=== PATIENT | female | born 1955 | race Caucasian/White ===

== ENCOUNTER 2018-08-23 21:52 | Inpatient (IN) ==
[2018-08-23] MEDS ORDERED: NS 1,000 ML IV SCH (23:00)
[2018-08-23] MEDS ORDERED: PROTONIX IV ONE (23:21)
[2018-08-23] MEDS ORDERED: SODIUM CHLORIDE 0.9% INJ ONE (23:21)
[2018-08-24 00:13] LABS: BASO# 0.02 X1000 (0.0-0.2); BASO% 0.2 % (0.0-0.8); EOS# 0.02 X1000 (0.0-0.7); EOS% 0.2 % (0.0-10.0); HEMATOCRIT 39.5 % (37.0-47.0); HEMOGLOBIN 13.5 g/dL (12.0-16.0); LYMPH# 1.04 X1000 (1.2-3.4); LYMPH% 10.6 % (20.5-51.1); MCH 30.7 PG (27-31); MCHC 34.2 g/dL (33-37); MCV 89.8 FL (81-99); MONO# 0.41 X1000 (0.11-0.59); MONO% 4.2 % (1.7-9.3); MPV 9.4 FL (7.4-10.4); NEUT# 8.33 X1000 (1.4-6.5); NEUT% 84.8 % (42.2-75.2); PLT 280 X1000 (130-400); RDW 13.9 % (11.5-14.5); WBC 9.82 X1000 (4.8-10.8)
[2018-08-24 00:22] LABS: INR 0.94; PROTIME 13.4 Seconds (11.0-16.0)
[2018-08-24 00:23] LABS: PTT 31.1 Seconds (22.3-41.8)
[2018-08-24 00:30] LABS: AGAP 14; ALB/GLOB RATIO 1.3; ALBUMIN 4.2 g/dL (3.5-5.0); ALKALINE PHOSPHATASE 91 U/L (32-104); BUN 10 mg/dL (8-22); CALCIUM 9.1 mg/dL (8.8-10.2); CHLORIDE 98 mmol/L (98-107); COSMO 274; CREATININE 0.7 mg/dL (0.5-0.9); ESTIMATED GFR > 60; GLUCOSE 118 mg/dL (70-104); GOT 16 U/L (10-30); GPT 13 U/L (10-36); POTASSIUM 4.1 mmol/L (3.5-5.1); SODIUM 137 mmol/L (136-145); TCO2 25 mmol/L (25-35); TOTAL BILIRUBIN 0.32 mg/dL (0.20-1.00); TOTAL PROTEIN 7.4 g/dL (6.3-8.3)
--- NOTE | 2018-08-24 02:27 | PROVIDER DOCUMENTATION ---
This chart was entered by Lucy Burrows Scribe, acting as scribe for Lucy Arboleda MD. HPI-Abdominal Pain/GI Problem - General Source: patient - History of Present Illness-ABD Nature of Presenting Problems: Pt presents to ED w/ ABD pain and diarrhea w/ bright red blood that started just today. She went to [facility] and was told that she may have diverticulits. They gave her antibiotics and told her to see ED if she got worse. She sts that she has been in more pain and had more bleeding. She sts that she has also had h/a dizziness w/ vomiting ( denies any blood in vomit ). Pt has hx of HTN. Sts that she has had recent weight gain. Abdominal Pain Onset Location: reports: periumbilical Pain Radiation: reports: no radiation Quality of Pain: reports: aching Severity in ED: reports: moderate Onset/Duration: reports: this morning Timing: reports: still present Activities at Onset: reports: none Exposure to sick contacts?: No Modifying Factors: improves with: nothing Associated Symptoms: reports: denies symptoms, diarrhea, vomiting. denies: diaphoresis, fever/chills, weakness Dark Stools Present?: reports: bright red blood Rectal Bleeding: reports: bloody diarrhea Rectal Pain: reports: none Emesis Description: reports: none Bruising or Bleeding Gums?: No Similar Symptoms Previously?: No Recently seen or treated by another doctor?: No <Lucy Arboleda - Last Filed: 08/24/18 02:26> <Zion Pinto - Last Filed: 08/24/18 03:20> - General Chief Complaint: GI Bleed Stated Complaint: BLOODY STOOLS Time Seen by Provider: 08/23/18 22:08 Review of Systems - Adult - REVIEW OF SYSTEMS - ADULT Constitutional: reports: no symptoms reported. denies: chills, fever Eyes: reports: no symptoms reported Ears, Nose, Mouth & Throat: reports: no symptoms reported Cardiovascular: reports: no symptoms reported. denies: chest pain Respiratory: reports: no symptoms reported Gastrointestinal: reports: abdominal pain, diarrhea, nausea, vomiting Genitourinary: reports: no symptoms reported Musculoskeletal: reports: no symptoms reported Integumentary: reports: no symptoms reported Neurological: reports: no symptoms reported. denies: dizziness/vertigo, headache/migraines Psychiatric: reports: no symptoms reported Endocrine: reports: no symptoms reported Hematologic/Lymphatic: reports: no symptoms reported Allergic/Immunologic: reports: no symptoms reported All Other Systems: Reviewed and Negative <Lucy Arboleda - Last Filed: 08/24/18 02:26> Past History - Adult - PAST MEDICAL HISTORY-ADULT Review of Records: reports: Old Records Reviewed, Nursing Assessment Review, Medications Reviewed, Social history reviewed & non-contributory. Major Childhood Illnesses: reports: denies history Cardiovascular: reports: HTN Respiratory: reports: denies history Gastrointestinal: reports: denies history Obstetrical/Gynecological: reports: denies history Genitourinary: reports: denies history Musculoskeletal: reports: denies history Neurological: reports: denies history Psychiatric: reports: denies history Endocrine/Immune: reports: denies history Other Conditions: reports: denies history - SOCIAL HISTORY Smoking: denies, non-smoker Substance Use: none/never, none presently/history of abuse Alcohol Use Frequency: never Living Situation: alone <Lucy Arboleda - Last Filed: 08/24/18 02:26> Physical Exam-General - PHYSICAL EXAM-ADULT Initial Vital Signs Reviewed: Yes - CONSTITUTIONAL General Appearance: appears well, alert, no apparent distress - EYES Eyes: PERRL/EOMI, pink conjunctivae - HEAD, EARS, NOSE, MOUTH & THROAT HENMT: normocephalic/atraumatic, moist mucous membranes, normal ENT inspection, TMs normal, pharynx normal - NECK Neck: non-tender, full range of motion, supple, normal inspection - RESPIRATORY Respiratory: lungs clear - CARDIOVASCULAR Cardiovascular: regular rate, rhythm - GASTROINTESTINAL (ABDOMEN) Abdominal Exam: normal bowel sounds, soft, tenderness - LYMPHATIC Lymphatic: no adenopathy - MUSCULOSKELETAL Back Exam: normal inspection, no CVA tenderness, no vertebral tenderness Extremity: normal range of motion, non-tender, normal gait, normal inspection - SKIN Integumentary: normal color, warm/dry - NEUROLOGIC Neurologic: grossly normal - PSYCHIATRIC Psych/Mental Status: normal mood/affect, normal thought content, normal thought process, oriented x 3 <Lucy Arboleda - Last Filed: 08/24/18 02:26> Progress - PLAN OF CARE/RESULTS Progress/Plan/Lab Results: Vital Signs - 8 hr 08/23/18 21:58 Temperature 97.5 F L Pulse Rate 88 Respiratory Rate 20 Blood Pressure 169/100 O2 Sat by Pulse Oximetry 98 Orders Category Date Time Status CBC WITH ELECTRONIC DIFF [HEME] Stat Lab 08/23/18 22:46 Uncollected COMPREHENSIVE METABOLIC PANEL [CHEM] Stat Lab 08/23/18 22:46 Uncollected OCCULT BLOOD NON-FECES Stat Lab 08/23/18 22:46 Uncollected OCCULT BLOOD SCREENING [STOOL] Stat Lab 08/23/18 22:46 Uncollected PROTIME WITH INR [COAG] Stat Lab 08/23/18 22:46 Uncollected PTT [COAG] Stat Lab 08/23/18 22:46 Uncollected TYPE & SCREEN [BBK] Stat Lab 08/23/18 22:46 Uncollected 0.9% Sodium Chloride Inj [Ns] 1,000 ml Med 08/23/18 23:00 Active IV 125 mls/hr GI Bleed (possible) Stat Oth 08/23/18 22:46 Ordered Result Diagrams: 08/23/18 23:43 08/23/18 23:43 - REASSESSMENT Reassessment #1 Time Reassessed: 00:57 (hb trending down from afternoon clinic was 14.1. history of chronic alcohol use 6pk aday daily. admit not drinking today. ) Reassessment #2 Time Reassessed: 02:26 (not heard from GI specialist) - CHANGE OF SHIFT REPORT (ED Provider) 1 Report Given and Care Transferred to:: Dr. Quinones Time of Transfer: 02:27 (pending on GI specialist for recommendation. ) <Lucy Arboleda - Last Filed: 08/24/18 02:26> - PLAN OF CARE/RESULTS Progress/Plan/Lab Results: Vital Signs - 8 hr 08/23/18 21:58 Temperature 97.5 F L Pulse Rate 88 Respiratory Rate 20 Blood Pressure 169/100 O2 Sat by Pulse Oximetry 98 08/24/18 00:21 Stool Occult Blood (THIERRY) - Final Stool Laboratory Results - last 24 hr 08/23/18 08/23/18 08/23/18 23:43 23:43 23:43 WBC 9.82 RBC 4.40 Hgb 13.5 Hct 39.5 MCV 89.8 MCH 30.7 MCHC 34.2 RDW Std Deviation 13.9 Plt Count 280 MPV 9.4 Immature Gran % (Auto) 0.0 Neut % (Auto) 84.8 H Lymph % (Auto) 10.6 L [place] % (Auto) 4.2 Eos % (Auto) 0.2 Baso % (Auto) 0.2 Immature Gran # (Auto) 0.00 Neut # (Auto) 8.33 H Lymph # (Auto) 1.04 L [place] # (Auto) 0.41 Eos # (Auto) 0.02 Baso # (Auto) 0.02 PT 13.4 INR 0.94 PTT (Actin FS) 31.1 Sodium 137 Potassium 4.1 Chloride 98 Carbon Dioxide 25 Anion Gap 14 BUN 10 Creatinine 0.7 Estimated GFR/1.73 m2 > 60 BUN/Creatinine Ratio 14 Glucose 118 H Calculated Osmolality 274 Calcium 9.1 Total Bilirubin 0.32 AST 16 ALT 13 Alkaline Phosphatase 91 Total Protein 7.4 Albumin 4.2 Globulin 3.2 Albumin/Globulin Ratio 1.3 Blood Type Antibody Screen 08/23/18 23:43 WBC RBC Hgb Hct MCV MCH MCHC RDW Std Deviation Plt Count MPV Immature Gran % (Auto) Neut % (Auto) Lymph % (Auto) [place] % (Auto) Eos % (Auto) Baso % (Auto) Immature Gran # (Auto) Neut # (Auto) Lymph # (Auto) [place] # (Auto) Eos # (Auto) Baso # (Auto) PT INR PTT (Actin FS) Sodium Potassium Chloride Carbon Dioxide Anion Gap BUN Creatinine Estimated GFR/1.73 m2 BUN/Creatinine Ratio Glucose Calculated Osmolality Calcium Total Bilirubin AST ALT Alkaline Phosphatase Total Protein Albumin Globulin Albumin/Globulin Ratio Blood Type A POSITIVE Antibody Screen NEGATIVE Orders Category Date Time Status CBC WITH ELECTRONIC DIFF [HEME] Stat Lab 08/23/18 23:43 Completed COMPREHENSIVE METABOLIC PANEL [CHEM] Stat Lab 08/23/18 23:43 Completed OCCULT BLOOD NON-FECES Stat Lab 08/23/18 22:46 Uncollected OCCULT BLOOD SCREENING [STOOL] Stat Lab 08/24/18 00:21 Completed OCCULT BLOOD SCREENING [STOOL] Stat Lab 08/24/18 01:08 Ordered PROTIME WITH INR [COAG] Stat Lab 08/23/18 23:43 Completed PTT [COAG] Stat Lab 08/23/18 23:43 Completed TYPE & SCREEN [BBK] Stat Lab 08/23/18 23:43 Completed 0.9% Sodium Chloride Inj [Ns] 1,000 ml Med 04/28/19 23:00 Discontinued IV 125 mls/hr Pantoprazole [Protonix] Med 08/23/18 23:21 Discontinued 40 mg IV NOW ONE Sodium Chloride 0.9% Med 08/23/18 23:21 Discontinued 10 ml INJ NOW ONE GI Bleed (possible) Stat Oth 08/23/18 22:46 Ordered Transfer/Admit Order [TRANSFER] Routine Transfer 08/24/18 03:13 Ordered Result Diagrams: 08/23/18 23:43 08/23/18 23:43 - CONSULTS/PCP/HOSPITALIST Notification #1 *Consult/PCP/Hospitalist*: Dr Anaya Time Discussed: 03:19 Reason/Comments: agreed to consult and asked for Hospitalist to admit. #2 Consult: Dr Landaverde Time Discussed: 03:19 Consult Disposition: Will see in ED, Admit <Zion Pinto - Last Filed: 08/24/18 03:20> Departure - Departure Date of Disposition Decision: 08/24/18 Time of Disposition Decision: 00:56 Certified Medical Emergency: Emergent - Critical Care Note This patient required my direct & personal management of CC.: No <Lucy Arboleda - Last Filed: 08/24/18 02:26> - Departure Certified Medical Emergency: Emergent - Critical Care Note This patient required my direct & personal management of CC.: No <Zion Pinto - Last Filed: 08/24/18 03:20> - Departure DIAGNOSIS: Alcohol use disorder, Bright red blood per rectum, GI bleeding Disposition: ADMITTED INPATIENT 09 Condition: Stable Referrals and Follow-Ups: TORRIE GARNICA CRNP [Primary Care Provider] - Attestation - Physician/ GODFREY Attestation Patient care was provided by Advanced Practice Provider:: No The physician spent face to face time with patient:: Yes Advanced Practice Provider documentation review:: Supervising physician onsite and consulted in the evaluation and care of this patient. The physician did have a face to face encounter with the patient. <Lucy Arboleda - Last Filed: 08/24/18 02:26> - Physician/ GDOFREY Attestation Patient care was provided by Advanced Practice Provider:: No The physician spent face to face time with patient:: Yes Advanced Practice Provider documentation review:: Supervising physician onsite and consulted in the evaluation and care of this patient. The physician did have a face to face encounter with the patient. <Zion Pinto - Last Filed: 08/24/18 03:20> This chart was documented by the indicated scribe, (Lucy Burrows, Scribe) and accurately reflects the services I performed and decisions made by me, Lucy Arboleda MD, as attested by the provider's signature.
--- NOTE | 2018-08-24 04:42 | HISTORY AND PHYSICAL ---
PRIMARY CARE PROVIDER: Chrissy GARCIA. CHIEF COMPLAINT: Nausea, vomiting, diarrhea, and constant abdominal pain. HISTORY OF PRESENT ILLNESS: Ms Shah is a 63-year-old female who carries a past medical history of hypertension, H pylori, who reports around noon yesterday she started having bouts of diarrhea. At one point, the abdominal pain became so intense she became nauseated and had a vomiting episode. She went to see providers at [facility], who diagnosed her with diverticulitis and told her if she did not get any better to report to the ED. She had a dozen or so bright red blood stools, continued right and lower quadrant abdominal pain as well as right back pain. She states that the pain comes in waves and is intense. However, she has constant abdominal pain that just eases. She has not had any episodes of diarrhea since admission. Her Hemoccult stool was positive. She does not have a white count. No fever. No chills. No shortness of breath. No chest pain. No palpitations. She was given IV Protonix in the ED. We will check a CT of the abdomen and pelvis CT to rule in or out diverticulitis. Again, patient does not have a history. Her hemoglobin and hematocrit are currently stable at 13 and 39. All other laboratory data was unremarkable. She is being admitted to the medical telemetry floor for further evaluation and treatment with GI. PAST MEDICAL HISTORY: Hypertension. PAST SURGICAL HISTORY: Denies. FAMILY HISTORY: Reviewed and noncontributory. SOCIAL HISTORY: She lives with her . No alcohol, tobacco, or illicit drug use. ALLERGIES: Not recorded. HOME MEDICATIONS: Not in the computer, but patient takes lisinopril 20 mg p.o. daily. REVIEW OF SYSTEMS: Complete 10 point review of systems completely negative except for those mentioned in HPI. PHYSICAL EXAMINATION: VITAL SIGNS: Temperature is 97.5 degrees, heart rate 88, respirations 20, blood pressure 169/100, O2 is 98% on room air. GENERAL: Ms. Shah is a pleasant 63-year-old female lying on the stretcher in no acute distress. HEENT: Atraumatic, normocephalic. PERRL. NECK: Supple. Trachea midline. CARDIOVASCULAR: S1, S2 appreciated. No murmurs, gallops, rubs noted. RESPIRATORY: Lung sounds clear bilaterally. GASTROINTESTINAL: Soft, nontender, nondistended. Positive bowel sounds 4 quadrants. EXTREMITIES: Negative for edema. NEUROLOGIC: No focal deficits noted. DIAGNOSTIC DATA: None. CT of the abdomen and pelvis is pending. LABORATORY DATA: Hematology, WBCs 9, hemoglobin and hematocrit 13 and 39, platelet count is 280,000. Chemistry: Sodium 137, potassium 4.1, BUN 10, creatinine 0.7, blood glucose is 118. ASSESSMENT/PLAN: 1. Lower gastrointestinal bleed. We will check a CT scan to rule out diverticulitis or hemorrhoids. Patient is complaining of abdominal pain. She was given a shot of IV antibiotics at [facility] and was sent with p.o. antibiotics. She continued to have abdominal cramping and a dozen or so episodes of bright red blood diarrhea. It has stopped since she has arrived to the ED. She has had no more episodes. Her hemoglobin and hematocrit are currently stable. We will continue to monitor serial hemoglobins and hematocrits. Consult Dr. Anaya. Make her NPO. We will let her have ice chips and sips of water. We will await the results of the CT of the abdomen and pelvis. Initiate antibiotics as appropriate. Provide her with IV fluids in pain medication. 2. Hypertension. We ill provide p.r.n. Apresoline for systolic blood pressure greater than 160 or diastolic greater than 100. 3. Helicobacter pylori history. 4. Further recommendation to follow physician evaluation, laboratory and diagnostic data. Patient seen and examined by me face to face, all the laboratory, vitals signs and images were reviewed, patient presented to the emergency department with nausea, vomiting and abdominal pain, she has a history of H Pylori and probably diverticulitis, we did a CT scan of the abdomen, pending results, in the other hand she has been having multiple bloody bowel movements, GI will be consulted, she received antibiotics, hemoglobin stable, I agree with the rest of the V[employer]TEER SERVICES ASSISTANT's assessment and plan, Dennis Mcfadden MD. Dictated by RADHA Calvert for Dennis Rider MD cc: MD Mason Guillen MD Natalie McCay, CRNP MTDD
[2018-08-24] MEDS ORDERED: APRESOLINE IV PRN (05:17)
[2018-08-24] MEDS ORDERED: NS 1,000 ML IV ONE (05:17)
[2018-08-24] MEDS ORDERED: ZOFRAN IV PRN ×2 (05:17→10:42)
[2018-08-24] MEDS: MORPHINE IV PRN ×3 (05:57→14:03)
[2018-08-24 06:33] LABS: HEMATOCRIT 42.3 % (37.0-47.0); HEMOGLOBIN 14.2 g/dL (12.0-16.0)
[2018-08-24 06:45] LABS: AGAP 15; BUN 9 mg/dL (8-22); CALCIUM 8.8 mg/dL (8.8-10.2); CHLORIDE 103 mmol/L (98-107); COSMO 278; CREATININE 0.5 mg/dL (0.5-0.9); ESTIMATED GFR > 60; GLUCOSE 100 mg/dL (70-104); POTASSIUM 3.7 mmol/L (3.5-5.1); SODIUM 140 mmol/L (136-145); TCO2 22 mmol/L (25-35)
--- NOTE | 2018-08-24 07:39 | Diag Imaging Result Doc PS360 ---
EXAM: CT ABDOMEN/PELVIS W/O CONTRAST 08/24/2018 HISTORY: R/O diverticulitis TECHNIQUE: This exam was performed using automated exposure control, adjustment of mA or kV according to patient size, and/or use of iterative reconstruction technique. COMMENT: There are fibrotic or atelectatic changes in both posterior costophrenic sulci. There are no previous studies available for comparison. There are no gallstones. There is no evidence of nephrolithiasis or hydronephrosis. There is mucosal thickening and pericolic edema surrounding the splenic flexure and upper descending colon. There are a few scattered diverticula. There is no definite evidence of diverticulitis. There are a large number of sigmoid diverticula. There are calcifications in the uterus which are probably due to fibroids. The appendix is normal in appearance. There is a fat-containing right inguinal hernia. There are some degenerative disc and facet changes in the lumbar spine. IMPRESSION: Left-sided colitis. Electronically signed by Garret Matta 08/24/2018 7:37 AM
[2018-08-24] MEDS: PROTONIX IV SCH (08:59)
[2018-08-24] MEDS: SODIUM CHLORIDE 0.9% INJ SCH (08:59)
[2018-08-24] MEDS: LEVAQUIN 500 MG/D5W 500 MG/100 ML IVPB IV SCH (11:36)
--- NOTE | 2018-08-24 12:03 | GASTROENTEROLOGY CONSULTATION ---
DATE: 08/24/2018 DICTATING PHYSICIAN: Germán Batista MD REQUESTING PHYSICIAN: Mynor Moore MD PRIMARY CARE DOCTOR: RADHA Angelo. REASON FOR CONSULTATION: Nausea, vomiting abdominal pain, diarrhea and question of lower GI bleeding. HISTORY OF PRESENT ILLNESS: Ms. Shah is a 63-year-old female admitted on 08/24/2018 for symptoms of abdominal pain, nausea, vomiting, diarrhea and bright blood in the stools going on for he last one week. She initially went to [facility] and was diagnosed with diverticulitis. She was told to go to the ER if she does not get better. She came to the ER today because of ongoing symptoms, abdominal pain, nausea, vomiting, and diarrhea and blood in the stools. She had labs done in the hospital that showed normal hemoglobin and hematocrit. She also had a CT of the abdomen and pelvis done which showed evidence of left-sided colitis. She had a large number of the sigmoid diverticula noted. There was no definite evidence of diverticulitis. There was evidence of mucosal thickening and pericolic edema surrounding the splenic flexion and upper descending colon. Gastroenterology was consulted for further management. PAST MEDICAL HISTORY: Hypertension. H. Pylori. Diverticulosis. PAST SURGICAL HISTORY: None. FAMILY HISTORY: Noncontributory. SOCIAL HISTORY: She is a nonsmoker. No history of alcohol or illicit drug abuse. She lives alone. ALLERGIES: No known drug allergies. MEDICATIONS IN THE HOSPITAL: Hydralazine, morphine, normal saline 75 mL per hour, Zofran, Protonix. She is currently n.p.o. REVIEW OF SYSTEMS: Denies any fevers, rigors, chills, chest pain, shortness of breath, dyspnea. Denies any vomiting blood. She does complain of passing blood in the stools, bright red blood. She denies any history of blood in the urine. She denies any history of excessive use of NSAIDs. Denies any neurologic complaints. BODY WEIGHT: 143 pounds 9 ounces. BMI of 28 kg/m2. PHYSICAL EXAMINATION: Vitals: Temperature 98.6, pulse of 81, respiratory rate of 18, blood pressure 122/60, saturating 99% on room air. General: Moderately built, moderately nourished, lying in bed, in no acute distress. HEENT: No pallor. No icterus. Pupils equal, reactive to light. Neck: Supple. Abdomen: Discomfort in the left upper quadrant. No hepatosplenomegaly. No rebound. No guarding. Extremities: No cyanosis, clubbing. Neurologic: Alert, awake, oriented x3. LABORATORIES: Hemoglobin and hematocrit is 14.2 and 42.3, white count of 9.8, platelet count 280,000. Sodium 140, potassium 3.7, chloride 103, bicarb 22, anion gap 15, BUN of 9, creatinine 0.5, glucose of 100, calcium is 8.8, magnesium 2. AST 16, ALT 13, alkaline phosphatase 91, total protein 7.4, albumin of 4.2, total bilirubin is 0.32. INR 0.9. PT 13.4, PTT 31.1. Her stool studies have been ordered. Stool white cells, many. Stool for Clostridium difficile toxin is negative. Stool for Clostridium difficile antigen negative. Her stool cultures pending. Stool for occult blood is positive. CT scan as per history of present illness. IMPRESSION AND PLAN: 1. Abdominal pain, nausea, vomiting, diarrhea. 2. Left-sided colitis at the splenic flexure and descending colon on CT scan. 3. Diverticulosis of colon. 4. Rectal bleeding. 5. Hypertension. RECOMMENDATIONS: 1. I will follow up on the stool studies that have been ordered. 2. I will schedule the patient for colonoscopy tomorrow with Dr. Zarco. The risks, benefits, indications, and alternatives of the procedure were discussed with the patient and all questions answered. 3. Give the patient GI prophylaxis with PPIs. We will start her on Levaquin and Flagyl and Culturelle for now. 4. She will be getting IV fluids and she will start on clear liquid diet today. 5. She will continue IV antiemetics and IV pain control. 6. The above plan discussed with the patient and all questions answered. Please call us with any further questions. cc: MD Mynor Meneses MD Natalie McCay
[2018-08-24 12:46] LABS: HEMATOCRIT 36.5 % (37.0-47.0); HEMOGLOBIN 12.4 g/dL (12.0-16.0)
[2018-08-24] MEDS ORDERED: GOLYTELY PO ONE (14:00)
[2018-08-24] MEDS: FLAGYL 500 MG/NS 500 MG/100 ML IVPB IV SCH ×2 (14:03→21:03)
--- NOTE | 2018-08-24 17:39 | PROGRESS NOTE ---
DATE: 08/24/2018 SUBJECTIVE: The patient was admitted. This is a patient of RADHA Angelo. A 63-year-old who came in with nausea and vomiting, diarrhea, constant abdominal pain, and had sudden bleeding from her rectum. This is a 63-year-old who carries a past medical history of hypertension, history of Helicobacter pylori gastritis. Apparently, at noon the day before admission on the , she started having bouts of diarrhea. At one point, the abdominal pain was so intense she became nauseated and had vomiting episode. She went to see some providers at the [facility] who diagnosed with diverticulitis. Told her if it did not get any better to report to the emergency room. She had a dozen or so bright red blood loose stools, continued right and left lower quadrant abdominal pain, as well as right-sided back pain. The pain seemed to come in waves, kind of like spasm, constant abdominal pain that would ease at times, and she has not had any episodes of diarrhea. Her Hemoccult stools were positive. Did have an elevated white count, so admitted with lower gastrointestinal bleed. ASSESSMENT AND PLAN: 1. CT scan of the abdomen and pelvis was done today and suggests left-sided colitis, and GI was consulted. Dr. Batista felt left-sided colitis at the splenic flexure and descending colon on CT scan, diverticulosis of the colon, rectal bleeding, hypertension, so, she is scheduled for colonoscopy tomorrow with Dr. Zarco, and we will prep today. 2. Continue gastrointestinal prophylaxis, proton pump inhibitors. 3. Continue IV fluids and antiemetics. 4. History of pylori gastritis. REVIEW OF ORDERS: She is on Flagyl 500 mg IV every 8 hours, lactobacillus 1 b.i.d., Levaquin 500 mg IV every 24 hours, normal saline at 75 mL an hour, Protonix 40 mg daily. She is getting a prep with Colyte. REVIEW OF LABORATORIES: Hematocrit is stable at 36, hemoglobin at 12.4. Electrolytes unremarkable. Creatinine is 0.5. cc: Mynor Moore MD
[2018-08-24 19:38] LABS: BASO# 0.03 X1000 (0.0-0.2); BASO% 0.2 % (0.0-0.8); EOS# 0.18 X1000 (0.0-0.7); EOS% 1.3 % (0.0-10.0); HEMATOCRIT 40.2 % (37.0-47.0); HEMOGLOBIN 13.3 g/dL (12.0-16.0); IMM GRAN# 0.04 X1000 (0.0-0.04); IMM GRAN% 0.3 % (0.0-0.5); LYMPH# 1.87 X1000 (1.2-3.4); LYMPH% 13.9 % (20.5-51.1); MCH 30.3 PG (27-31); MCHC 33.1 g/dL (33-37); MCV 91.6 FL (81-99); MONO# 0.71 X1000 (0.11-0.59); MONO% 5.3 % (1.7-9.3); MPV 10.9 FL (7.4-10.4); PLT 207 X1000 (130-400); RBC 4.39 XMIL (4.2-5.4); RDW 14.4 % (11.5-14.5); WBC 13.43 X1000 (4.8-10.8)
[2018-08-24] MEDS: NS 1,000 ML IV SCH ×2 (19:48→21:06)
[2018-08-24 20:09] LABS: IRON SATURATION 22 %; TIBC 251 ug/dL; TOTAL IRON 54 ug/dL (49-151); UNBOUND IRON 197 ug/dL (112-346)
[2018-08-24] MEDS: CULTURELLE PO SCH (21:04)
[2018-08-24 21:24] LABS: BASO# 0.06 X1000 (0.0-0.2); BASO% 0.5 % (0.0-0.8); EOS# 0.12 X1000 (0.0-0.7); EOS% 1.1 % (0.0-10.0); HEMATOCRIT 38.4 % (37.0-47.0); HEMOGLOBIN 12.9 g/dL (12.0-16.0); LYMPH# 1.48 X1000 (1.2-3.4); MCH 31.4 PG (27-31); MCHC 33.6 g/dL (33-37); MCV 93.4 FL (81-99); MONO# 0.75 X1000 (0.11-0.59); MONO% 6.6 % (1.7-9.3); MPV 9.1 FL (7.4-10.4); NEUT# 9.01 X1000 (1.4-6.5); NEUT% 78.8 % (42.2-75.2); PLT 238 X1000 (130-400); RBC 4.11 XMIL (4.2-5.4); RDW 14.5 % (11.5-14.5); WBC 11.42 X1000 (4.8-10.8)
[2018-08-25 02:02] LABS: BASO# 0.02 X1000 (0.0-0.2); BASO% 0.2 % (0.0-0.8); EOS# 0.12 X1000 (0.0-0.7); EOS% 1.3 % (0.0-10.0); HEMATOCRIT 33.6 % (37.0-47.0); HEMOGLOBIN 11.2 g/dL (12.0-16.0); IMM GRAN# 0.02 X1000 (0.0-0.04); IMM GRAN% 0.2 % (0.0-0.5); LYMPH# 1.37 X1000 (1.2-3.4); LYMPH% 14.4 % (20.5-51.1); MCH 30.4 PG (27-31); MCHC 33.3 g/dL (33-37); MCV 91.3 FL (81-99); MONO# 0.55 X1000 (0.11-0.59); MONO% 5.8 % (1.7-9.3); MPV 8.8 FL (7.4-10.4); NEUT# 7.41 X1000 (1.4-6.5); NEUT% 78.1 % (42.2-75.2); PLT 235 X1000 (130-400); RBC 3.68 XMIL (4.2-5.4); RDW 14.2 % (11.5-14.5); WBC 9.49 X1000 (4.8-10.8)
[2018-08-25] MEDS: FLAGYL 500 MG/NS 500 MG/100 ML IVPB IV SCH ×3 (04:40→20:00)
[2018-08-25] MEDS ORDERED: DIPRIVAN 1% ONE (06:28)
[2018-08-25 08:04] LABS: BASO# 0.04 X1000 (0.0-0.2); BASO% 0.5 % (0.0-0.8); EOS# 0.15 X1000 (0.0-0.7); EOS% 1.8 % (0.0-10.0); HEMATOCRIT 32.7 % (37.0-47.0); HEMOGLOBIN 10.8 g/dL (12.0-16.0); LYMPH# 1.31 X1000 (1.2-3.4); LYMPH% 16.1 % (20.5-51.1); MCH 30.3 PG (27-31); MCV 91.6 FL (81-99); MONO# 0.45 X1000 (0.11-0.59); MONO% 5.5 % (1.7-9.3); MPV 9.1 FL (7.4-10.4); NEUT# 6.17 X1000 (1.4-6.5); NEUT% 76.1 % (42.2-75.2); PLT 233 X1000 (130-400); RBC 3.57 XMIL (4.2-5.4); RDW 14.2 % (11.5-14.5); WBC 8.12 X1000 (4.8-10.8)
[2018-08-25 08:35] LABS: AGAP 12; ALB/GLOB RATIO 1.4; ALBUMIN 3.4 g/dL (3.5-5.0); ALKALINE PHOSPHATASE 68 U/L (32-104); BUN 4 mg/dL (8-22); CALCIUM 8.2 mg/dL (8.8-10.2); CHLORIDE 107 mmol/L (98-107); COSMO 276; CREATININE 0.4 mg/dL (0.5-0.9); ESTIMATED GFR > 60; GLUCOSE 85 mg/dL (70-104); GOT 12 U/L (10-30); GPT 8 U/L (10-36); POTASSIUM 3.7 mmol/L (3.5-5.1); SODIUM 140 mmol/L (136-145); TCO2 21 mmol/L (25-35); TOTAL BILIRUBIN 0.31 mg/dL (0.20-1.00); TOTAL PROTEIN 5.9 g/dL (6.3-8.3)
[2018-08-25] MEDS: NS 1,000 ML IV SCH ×2 (09:57→21:48)
[2018-08-25] MEDS: PROTONIX IV SCH (09:58)
[2018-08-25] MEDS: SODIUM CHLORIDE 0.9% INJ SCH (09:58)
[2018-08-25] MEDS: LEVAQUIN 500 MG/D5W 500 MG/100 ML IVPB IV SCH (09:58)
--- NOTE | 2018-08-25 12:14 | OPERATIVE NOTE ---
PROCEDURE DATE: 08/25/2018 PROVIDER: Ethan Zarco MD. PROCEDURE: Colonoscopy. INDICATION: Hematochezia, colitis. MEDICATIONS: Monitored anesthesia care. DESCRIPTION OF PROCEDURE: Prior to procedure, history and physical was performed and the patient's medication and allergies were reviewed. The patient's tolerance to previous anesthesia was also reviewed. The risks and benefits of the procedure and sedation options and risks were discussed with the patient and all questions answered. Informed consent was obtained. After reviewing the risks and benefits, benefits the patient was deemed to be in satisfactory condition to undergo the procedure. The colonoscope was passed under direct visualization. Throughout the procedure, the patient's blood pressure pulse and oxygen saturation were monitored continuously. The colonoscope was introduced through the anus and advanced to the cecum identified by the appendiceal orifice and ileocecal valve. The colonoscopy was accomplished without difficulty. The patient tolerated the procedure well. The quality of the prep was adequate. COMPLICATIONS: No immediate complications. ESTIMATED BLOOD LOSS: Minimal. FINDINGS: There was moderate colitis found from 30 cm to 55 cm from the anal verge consistent with ischemic colitis. Biopsies were obtained with cold biopsy forceps to evaluate for ischemic colitis versus inflammatory bowel disease. Proximal to this area, the colon was normal. There were moderate diverticula in the descending and sigmoid colon. Internal hemorrhoids were found in the rectum on retroflexion. IMPRESSION: Left-sided colitis consistent with ischemic colitis, biopsied. Sigmoid and descending diverticula. Internal hemorrhoids, small. RECOMMENDATIONS: Start clear liquid diet. Follow up pathology results. We will follow with you. Please call with any questions or concerns.
[2018-08-25] MEDS: CULTURELLE PO SCH ×2 (13:16→19:59)
[2018-08-25 14:28] LABS: BASO# 0.03 X1000 (0.0-0.2); BASO% 0.3 % (0.0-0.8); EOS# 0.17 X1000 (0.0-0.7); EOS% 1.8 % (0.0-10.0); HEMATOCRIT 35.8 % (37.0-47.0); HEMOGLOBIN 11.8 g/dL (12.0-16.0); IMM GRAN# 0.03 X1000 (0.0-0.04); IMM GRAN% 0.3 % (0.0-0.5); LYMPH% 11.7 % (20.5-51.1); MCH 30.6 PG (27-31); MONO# 0.21 X1000 (0.11-0.59); MONO% 2.2 % (1.7-9.3); MPV 9.3 FL (7.4-10.4); NEUT# 7.86 X1000 (1.4-6.5); NEUT% 83.7 % (42.2-75.2); PLT 222 X1000 (130-400); RBC 3.85 XMIL (4.2-5.4); RDW 14.2 % (11.5-14.5)
[2018-08-25 20:22] LABS: BASO# 0.02 X1000 (0.0-0.2); BASO% 0.2 % (0.0-0.8); EOS# 0.13 X1000 (0.0-0.7); EOS% 1.5 % (0.0-10.0); HEMATOCRIT 33.1 % (37.0-47.0); HEMOGLOBIN 10.9 g/dL (12.0-16.0); LYMPH# 1.17 X1000 (1.2-3.4); LYMPH% 13.7 % (20.5-51.1); MCH 30.6 PG (27-31); MCHC 32.9 g/dL (33-37); MONO# 0.42 X1000 (0.11-0.59); MONO% 4.9 % (1.7-9.3); MPV 9.1 FL (7.4-10.4); NEUT# 6.81 X1000 (1.4-6.5); NEUT% 79.7 % (42.2-75.2); PLT 229 X1000 (130-400); RBC 3.56 XMIL (4.2-5.4); RDW 14.2 % (11.5-14.5); WBC 8.55 X1000 (4.8-10.8)
--- NOTE | 2018-08-25 22:17 | PROGRESS NOTE ---
DATE: 08/25/2018 SUBJECTIVE: The patient is resting comfortably. She has been able to tolerate her liquid diet without any difficulty. OBJECTIVE: Vital Signs: Temperature 98 degrees, blood pressure 119/64, heart rate 80, respirations 18, O2 saturation 99% on room air. General: This is an elderly female sitting up in bed in no acute distress. Heart: S1, S2 normal. Regular rate and rhythm. Lungs: Clear to auscultation bilaterally. Abdomen: Positive bowel sounds. Soft, nontender, nondistended. Extremities: No edema, no cyanosis. Neuro: The patient is alert and oriented x3. LABS: Reviewed. ASSESSMENT AND PLAN: 1. Ischemic colitis. Continue with the current treatment regimen. The pathology report is currently pending. Further management as per GI. 2. Anemia. Stable. 3. Deep vein thrombosis prophylaxis. Start patient on SCDs. cc: Sary Atkinson MD MTDD
[2018-08-26 02:24] LABS: BASO# 0.03 X1000 (0.0-0.2); BASO% 0.4 % (0.0-0.8); EOS# 0.17 X1000 (0.0-0.7); HEMATOCRIT 29.9 % (37.0-47.0); IMM GRAN# 0.03 X1000 (0.0-0.04); IMM GRAN% 0.4 % (0.0-0.5); LYMPH# 1.87 X1000 (1.2-3.4); LYMPH% 22.3 % (20.5-51.1); MCH 30.5 PG (27-31); MCHC 33.4 g/dL (33-37); MCV 91.2 FL (81-99); MONO# 0.39 X1000 (0.11-0.59); MONO% 4.7 % (1.7-9.3); MPV 8.7 FL (7.4-10.4); NEUT# 5.88 X1000 (1.4-6.5); NEUT% 70.2 % (42.2-75.2); PLT 234 X1000 (130-400); RBC 3.28 XMIL (4.2-5.4); RDW 14.2 % (11.5-14.5); WBC 8.37 X1000 (4.8-10.8)
[2018-08-26] MEDS: FLAGYL 500 MG/NS 500 MG/100 ML IVPB IV SCH (04:59)
[2018-08-26 07:40] LABS: BASO# 0.03 X1000 (0.0-0.2); BASO% 0.4 % (0.0-0.8); EOS# 0.18 X1000 (0.0-0.7); EOS% 2.4 % (0.0-10.0); HEMATOCRIT 31.9 % (37.0-47.0); HEMOGLOBIN 10.6 g/dL (12.0-16.0); IMM GRAN# 0.02 X1000 (0.0-0.04); IMM GRAN% 0.3 % (0.0-0.5); LYMPH# 1.74 X1000 (1.2-3.4); LYMPH% 23.5 % (20.5-51.1); MCH 30.7 PG (27-31); MCHC 33.2 g/dL (33-37); MCV 92.5 FL (81-99); MONO# 0.44 X1000 (0.11-0.59); MONO% 5.9 % (1.7-9.3); MPV 9.2 FL (7.4-10.4); NEUT# 4.99 X1000 (1.4-6.5); NEUT% 67.5 % (42.2-75.2); PLT 232 X1000 (130-400); RBC 3.45 XMIL (4.2-5.4); RDW 14.2 % (11.5-14.5)
[2018-08-26] MEDS: NS 1,000 ML IV SCH (07:44)
[2018-08-26 08:00] LABS: AGAP 9; BUN 2 mg/dL (8-22); CALCIUM 7.8 mg/dL (8.8-10.2); CHLORIDE 107 mmol/L (98-107); COSMO 273; CREATININE 0.4 mg/dL (0.5-0.9); ESTIMATED GFR > 60; GLUCOSE 89 mg/dL (70-104); POTASSIUM 3.3 mmol/L (3.5-5.1); SODIUM 139 mmol/L (136-145); TCO2 23 mmol/L (25-35)
[2018-08-26] MEDS ORDERED: KLOR-CON PO ONE (08:01)
[2018-08-26] MEDS: PROTONIX IV SCH (08:19)
[2018-08-26] MEDS: CULTURELLE PO SCH (08:20)
[2018-08-26] MEDS: SODIUM CHLORIDE 0.9% INJ SCH (08:20)
[2018-08-26 11:46] VITALS: BP 134/77
--- NOTE | 2018-08-26 15:30 | PROVIDER PROGRESS NOTE ---
Progress Note SUBJECTIVE: No acute overnight events. No N/V/F, CP, SOB. No abdominal pain currently. Patient tolerating clears. No BM or rectal bleeding since c olonoscopy. She would like to go home. OBJECTIVE: Last Vital Signs Temp 97.7 F 08/26/18 11:44 Pulse 67 08/26/18 11:44 Resp 19 08/26/18 11:44 BP 134/77 08/26/18 11:44 Pulse Ox 99 08/26/18 11:44 Height 5 ft Weight 143 lb 9 oz GEN: awake, alert, NAD HEENT: anicteric, MMM NECK: supple, no jvd PULM: CTAB, no wheezing CV: RRR, no murmurs ABD: soft NT/ND, NABS EXT: no cce NEURO: nonfocal LABS: 08/26/18 08/26/18 02:09 07:09 WBC 8.37 Hgb 10.0 L Plt Count 234 Sodium 139 Potassium 3.3 L Chloride 107 Carbon Dioxide 23 L Anion Gap 9 BUN 2 L Creatinine 0.4 L Colonoscopy 08/25 IMPRESSION: Left-sided colitis consistent with ischemic colitis, biopsied. Sigmoid and descending diverticula. Internal hemorrhoids, small. A/P: Ms. Shah is a 63 year old woman who presented with acute N/V/D and rectal bleeding found to have left sided colitis on imaging on colonoscopy consistent with ischemic colitis. There were no ulcerations on colonoscopy. Biopsied to confirm. No culprit meds. She is non-toxic without leukocytosis. #Ischemic colitis - no indication for antibiotics - f/u path - GI soft diet for the next week - avoid constipation, dehydration, and low BP - avoid NSAIDs, tobacco - recommend follow-up in GI clinic in 2-4 weeks; will need repeat colonoscopy in 3-6 months to assess for mucosal healing #Diverticulosis: high fiber diet in 1 week #N/V: resolved #Hypertension: controlled Patient being discharged today. Will need GI follow-up as above
[2018-08-27] MEDS ORDERED: PROTONIX PO SCH (07:00)
--- NOTE | 2018-08-28 11:01 | DISCHARGE SUMMARY ---
ADMISSION DATE: 08/24/2018 DISCHARGE DATE: 08/26/2018 FINAL DISCHARGE DIAGNOSES: 1. Ischemic colitis. 2. Diverticulosis. 3. Hypokalemia. 4. Hypertension. CONSULTATIONS: GI consultation with Dr. Zarco. PROCEDURES: Colonoscopy which revealed left-sided ischemic colitis. Sigmoid and descending diverticula. IMAGING: CT of the abdomen and pelvis which revealed left-sided colitis. HOSPITAL COURSE: Ms. Shah is a 63-year-old female with a history of hypertension, who presented to the ER with a chief complaint of nausea, vomiting, diarrhea and abdominal pain. On admission, a CT of the abdomen and pelvis was done which revealed left-sided colitis. Stool studies were also obtained that were noted to be negative for Clostridium difficile or any other bacterial infection. The patient was treated with IV antibiotics initially. GI was consulted and the patient was taken for a colonoscopy that revealed left-sided ischemic colitis. With IV fluids and p.r.n. pain medication, the patient's symptoms improved. The patient was noted to have periods of hypokalemia, which were replenished with oral potassium replacement. The patient continued to improve clinically and was noted to have a hemoglobin of 10 with a hematocrit of 31 on the day of discharge. The patient was cleared for discharge home on 08/26/2018. DISCHARGE MEDICATIONS: Lisinopril 20 mg p.o. daily. DISCHARGE DIET: GI soft diet. The patient has also been advised to avoid seeds and nuts. FOLLOWUP INSTRUCTIONS: The patient will need to follow up with Dr. Zarco on 09/10/2018 at 9 a.m. to go over the pathology report results. cc: Sary Atkinson MD
== END 2018-08-26 13:05 | disposition home or self-care (01) | DRG 395 ==
LOC: ED 21:52 → 3N 08-24 04:01 → SUATTDRO 08-24 04:01
PROVIDERS: ATTEND Internal Medicine
CPT/HCPCS: 74176; 80048; 80053; 82270; 82728; 83540; 83550; 83735; 85014; 85018; 85025; 85610; 85730; 86850; 86900; 86901; 86920; 87045; 87046; 87177; 87205; 87324; 87449; 88305; 88313; 89055; 96374; 99285; A9270; C9113; J0360; J1956; J2270; J7030; S0030; S0164